=== PATIENT | male | born 1980 | race Two or more races ===

== ENCOUNTER 2018-12-10 18:21 | Emergency (ER) | payer SELFPAY ==
[2018-12-10 18:29] VITALS: BP 151/93
--- NOTE | 2018-12-10 19:02 | RADIOLOGY REPORT (SQ) ---
EXAM DESCRIPTION: HAND RIGHT 2 VIEWS COMPLETED DATE/TIME: 12/10/2018 6:46 pm REASON FOR STUDY: bone tenderness COMPARISON: None. EXAM PARAMETERS: NUMBER OF VIEWS: Two view. TECHNIQUE: AP and lateral radiographic images acquired of the right hand. LIMITATIONS: None. FINDINGS: MINERALIZATION: Normal. BONES: There is an oblique, minimally displaced and possibly comminuted fracture of the distal right 2nd metacarpal. JOINTS: No effusions. SOFT TISSUES: No soft tissue swelling. No foreign body. OTHER: No other significant finding. IMPRESSION: There is an oblique, minimally displaced and possibly comminuted fracture of the distal right 2nd metacarpal. TECHNICAL DOCUMENTATION: JOB ID: [id number] [employer]- All Rights Reserved Reading location - IP/workstation name: [email or web address]
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
== END 2018-12-10 19:33 | disposition home or self-care (01) ==
LOC: ER 18:21
DX: S62.300A Unspecified fracture of second metacarpal bone, right hand, initial encounter for closed fracture (principal); W22.01XA Walked into wall, initial encounter; Y93.89 Activity, other specified; F17.210 Nicotine dependence, cigarettes, uncomplicated; Z71.6 Tobacco abuse counseling
CPT/HCPCS: 99283